=== PATIENT | male | born 1945 | race Caucasian/White ===

== ENCOUNTER 2019-05-07 09:47 | Outpatient (CLI) | payer MEDICARE ==
[~2019-05-07] VITALS: Ht 193 cm; Wt 131.8 kg
--- NOTE | ~2019-05-07 | HEMODYNAMI ---
PATIENT:PAKO PALMER MEDICAL RECORD: [id number] : 49 LOCATION:D.CAT ADMISSION DATE: 05/07/19 Generatedon:05/07/201912:19 Patient name: PAKO PALMER Patient #: [id number] SSN: : 1945 Date of study: 05/07/2019 Page: Of Hemodynamic Procedure Report Patient Data Patient Demographics Procedure consent was obtained First Name: PAKO Gender: Male Last Name: SPENCER : 1945 Patient #: [id number] Age: 74 year(s) Race: Unknown Additional ID: [id number] Contact details [address]: [address] [place] [address] State: [place] City: [place] Zip code: [address] Admission Admission Data Admission Date: 05/07/2019 Admission Time: 9:47 Admit Source: Other Procedure Procedure Types Cath Procedure Diagnostic Procedure Cardioversion External Procedure Description Procedure Date Procedure Date: 05/07/2019 Procedure Start Time: 12:07 Procedure End Time: 12:19 Procedure Staff Name Function Otto Peres MD Performing Physician Elvis Núñez RT Monitor Little Brown RN Nurse Darian Garland CRNA Additional personnel Procedure Data Cath Procedure Fluoroscopy Diagnostic fluoroscopy Total fluoroscopy Time: 0 time: 0 min min Diagnostic fluoroscopy Total fluoroscopy dose: 0 dose: 0 mGy mGy Contrast Material Contrast Material Type Amount (ml) Isovue 300 0 Estimated blood loss: 0 ml Procedure Complications No complications Procedure Medications Medication Administration Route Dosage 0.9% NaCl I.V. 100 ml/hr Oxygen etCO2 Nasal cannula 2 l/min Refer to Anesthesia Notes for Sedation Medications Hemodynamics Rest Pre Cath Intra NCS Post Cath Vital Signs Time Heart Resp SPO2 etCO2 NIBP (mmHg) Rhythm Pain Sedation Rate (ipm) (%) (mmHg) Status Level (bpm) 12:05:30 77 20 97 37.7 156/101(139) A-Fib 0 (11) 10(A) , No pain 12:08:18 71 15 97 27.9 149/102(129) NSR 0 (11) 5(A) , No pain 12:12:32 69 21 97 29.4 126/85(98) NSR 0 (11) 5(A) , No pain 12:16:40 68 20 98 14 122/83(93) NSR 0 (11) 10(A) , No pain Medications Time Medication Route Dose Verified Delivered Reason Notes Effective ness by by 12:05:05 0.9% NaCl I.V. 100 Otto Fitch used for ml/hr Larisa Brown inventory control assistant 12:05:11 Oxygen etCO2 2 Otto Fitch used for Nasal l/min Larisa Brown procedure cannula RN 12:05:16 Refer to Otto Menjivar for Anesthesia Larisa Peres MD sedation Notes for Sedation Medications Procedure Log Time Note 11:48:12 Informed consent obtained and on chart 11:48:20 Admit Source: Other 11:48:34 Procedure Status Cardioversion. 11:48:36 Time tracking: Regular hours (M-F 7:00 - 5:00) 11:48:39 Plan of Care:Hemodynamics will remain stable., Cardiac rhythm will remain stable., Comfort level will be maintained., Respiratory function will remain adequate., Patient/ family verbilizes understanding of procedure., Procedure tolerated without complication., Recovers from procedure without complications.. 11:48:50 H&P Date Dictated: 04/29/2019 Within 30 days and on chart., H&P Addendum completed by physician on day of procedure. (MUST COMPLETE FOR ALL OUTPATIENTS). 11:50:20 Elvis DANIELLE(R) sent for patient. Start room use. 12:00:29 Patient arrived from Pre/Post Procedure Room to CCL 3. Patient remains on bed/stretcher for procedure. 12:00:31 Warm blankets applied, and ladonna hugger turned on for patient comfort. 12:00:31 Correct patient and procedure confirmed by team. 12:00:32 ECG and BP/O2 sat monitors applied to patient. 12:04:24 Vital chart was started 12:04:42 Darian Garland CRNA present and monitoring patient for TIVA. 12:05:05 0.9% NaCl 100 ml/hr I.V. was administered by Little Brown RN; used for procedure; 12:05:06 Quick Combo opened to sterile field. 12:05:11 Oxygen 2 l/min etCO2 Nasal cannula was administered by Little Brown RN; used for procedure; 12:05:12 Rhythm: atrial fibrillation 12:05:13 Full Disclosure recording started 12:05:15 Pre-procedure instructions explained to patient. 12:05:15 Pre-op teaching completed and patient verbalized understanding. 12:05:16 Refer to Anesthesia Notes for Sedation Medications was administered by Otto Peres MD; for sedation; 12:05:17 Family in waiting room. 12:05:18 Patient NPO since Midnight. 12:05:19 Is the patient allergic to Iodine/contrast media? No. 12:05:21 Is patient on blood thinner?Yes 12:05:24 ACC The patient was administered the following blood thiners within the last 24 hours: Coumadin 12:05:26 Patient diabetic? No. 12:05:28 Previous problem with sedation/anesthesia? No ? 12:05:29 Snore? Yes 12:05:30 Sleep apnea? No 12:05:31 Deviated septum? No 12:05:32 Opens mouth fully? Yes 12:05:33 Sticks out tongue? Yes 12:05:34 Airway obstruction? No ? 12:05:36 Dentures? No ? 12:06:28 Patient pain scale 0/10 ?. 12:06:57 IV patent on arrival in left forearm with 0.9% NaCl at [facility]. 12:06:58 Lab results completed and on chart. 12:06:59 --------ALL STOP TIME OUT------ 12:06:59 Alarms reviewed by Archana Link 12:07:04 Final Timeout: patient, procedure, and site verified with staff and physician. All members of the team are in agreement. 12:07:08 Fire Safety Assessment: E--There are other possible contributors. 12:07:21 Physical assessment completed. ASA score P 2 - A patient with mild systemic disease as per Otto Peres MD. 12:07:30 Sedation plan: TIVA Medication:Propofol 12:07:35 Procedure started. 12:07:36 Quick combo pads placed on patients chest and back. 12:07:39 Defibrillator synced and charged to 275 Joules. 12:07:47 Shock delivered. 12:07:50 Patient cardioverted to sinus rhythm . 12:07:54 Procedure ended.(Physican Out) 12:11:16 Fluoroscopy time 00.00 minutes. 12:11:17 Fluoroscopy dose: 0 mGy 12:11:17 Flurop Dose total: 0 12:11:18 Dose Area Product 0 mGy/cm. 12:11:21 Contrast amount:Isovue 300 0ml. 12:11:28 Post Procedure Pulses reassessed and unchanged 12:11:30 Post-procedure physical assessment completed. ASA score P 2 - A patient with mild systemic disease as per Otto Peres MD. 12:11:33 Post procedure rhythm: sinus rhythm 12:11:36 Estimated blood loss: 0 ml 12:11:38 Post procedure instruction explained to patient.Patient verbalizes understanding. 12:11:39 Patient needs reinforcement of post procedure teaching. 12:11:44 Procedure and supply charges have been captured, reviewed, submitted and are correct. 12:11:47 Procedure Complication : No complications 12:18:20 Vital chart was stopped 12:18:21 See physician's report for complete and final results. 12:18:24 Report given to Pre/Post Procedure Room. 12:18:57 Patient transfered to Pre/Post Procedure Room with Stretcher. 12:19:00 Procedure ended. 12:19:00 Full Disclosure recording stopped 12:19:03 End room use (Document Last) Device Usage Item Manufacture Quantity Catalog Hospital Part Current Minimal Lot# / Name Number Charge Number Stock Gregor Beckman hi# Code [employer] 1 [id number] Combo Signature Audit Breaks Stage Time Signature Unsigned Intra-Procedure 05/07/2019 Elvis Núñez 12:19:25 PM RT(R) Signatures Performing Physician : Signature : Otto Peres MD Date : Time : Monitor : Elvis Núñez RT Signature : Date : Time : Nurse : Little Brown RN Signature : Date : Time : [place] [address] [place] [address]
[2019-05-07] MEDS ORDERED: NORVASC5 MG PO (10:10)
[2019-05-07] MEDS ORDERED: COUMADIN5 MG PO (10:10)
[2019-05-07] MEDS ORDERED: LISINOPRIL20 MG PO (10:10)
[2019-05-07] MEDS ORDERED: BETAPACE 80 MG80 MG PO (10:10)
[2019-05-07] MEDS ORDERED: RITUXIN (10:12)
[2019-05-07 10:16] VITALS: BP 120/93; Ht 193 cm; Wt 131.8 kg
[2019-05-07 10:40] LABS: BASOPHILS 0.8 % (0-2); EOSINOPHILS 1.7 % (0-7); HEMATOCRIT 45.4 % (42.0-54.0); HEMOGLOBIN 15.9 g/dL (13.5-17.5); IMMATURE GRANULOCYTES 0.4 % (0-5); MCH 30.3 pg (26.0-34.0); MCV 86.6 fL (80.0-100.0); MEAN PLATELET VOLUME 9.7 fL (7.4-10.4); MONOCYTES 13.4 % (2-11); NEUTROPHILS 66.7 % (40-80); PLATELET COUNT 203 10x3/uL (130-400); RBC 5.24 10x6/uL (4.20-6.10); RDW 14.2 % (11.5-14.5); WBC 5.2 10x3/uL (4.8-10.8)
[2019-05-07 10:43] LABS: ANION GAP 10.9 mmol/L (8-16); CALCIUM 9.1 mg/dL (8.5-10.1); CREATININE - SERUM 1.2 mg/dL (0.6-1.3); POTASSIUM - SERUM 3.9 mmol/L (3.5-5.1)
[2019-05-07 10:58] LABS: INR 2.18 (0.85-1.17); PROTIME 23.6 SECONDS (11.6-15.0)
--- NOTE | 2019-05-07 12:47 | NUR ---
1235 PT SITTING UP IN BED, VISITING WITH FAMILY I THE ROOM. NSR, RATE IS 62, DENIES ANY C/O CHEST PAIN. SANDWICH AND PO FLUIDS SERVED. 1245 PT ADELAIDE SANDWICH WITH NO C/O NAUSEA. NSR, RATE IS 60, PT DENIES ANY C/O CHEST PAIN.
--- NOTE | 2019-05-07 12:57 | NUR ---
DR SCHUMACHER HAS ROUNDED. PT IS ALERT AND DENIES ANY C/O. NSR
--- NOTE | 2019-05-07 13:33 | NUR ---
1315 PT IS ALERT, DENIES ANY C/O. HAS ADELAIDE SANDWICH AND PO FLUID WITH NO C/O NAUSEA. SLIGHT REDNESS TO CARDIOVERSION PAD SITES IS UNCHANGED. NSR, DENIES ANY C/O CHEST PAIN. SISTER AT BEDSIDE. 1330 IV HAS BEEN DC'D WITH CATH INTACT AND PT HAS DRESSED FOR DC TO HOME. DC INSTRUCTIONS REVIEWED WITH PT WHO VERBALIZES UNDERSTANDING. PT ESCORTED TO PRIVATE AUTO VIA WC BY NURSE WITH SISTER DRIVING HIM HOME. PT HAS ALL PERSONAL BELONGINGS AND DC INSTRUCTIONS AT TIME OF DISCHARGE.
--- NOTE | 2019-05-08 14:31 | OP ---
PATIENT NAME: PAKO PALMER MEDICAL RECORD: [id number] :[birth year] LOCATION:D.CAT ADMISSION DATE: SURGEON: KIRA SCHUMACHER MD DATE OF OPERATION: 05/07/2019 PROCEDURE: DC cardioversion. INDICATION: Atrial fibrillation. PROCEDURE IN DETAIL: IV conscious sedation was per anesthesia. Continuous heart rate, O2 saturation, blood pressure monitoring all undertaken, all of which remains stable. He received 1 shock restoring sinus rhythm at 275 joules. OVERALL IMPRESSION: Successful DC cardioversion from atrial fibrillation to sinus rhythm. TRANSINT:[id number] Voice Confirmation ID: [id number] DOCUMENT ID: [id number] KIRA SCHUMACHER MD at 1431 CC: [id number] DICTATION DATE: 05/07/19 1223 DIRECTOR ONCOLOGY: 05/07/19 1730 DEP CLI 05/07/19 [id number] [place] [address]
== END 2019-05-07 13:30 | disposition home or self-care (01) ==
LOC: D.CATH 09:47
PROVIDERS: ATTEND Internal Medicine Interventional Cardiology
DX: I48.91 Unspecified atrial fibrillation (principal); Z01.812 Encounter for preprocedural laboratory examination